=== PATIENT | male | born 1985 | race Caucasian/White ===

== ENCOUNTER 2025-03-23 00:28 | Day surgery (SDC) | payer OTHER, SELFPAY ==
[2025-03-19 15:41] VITALS: BMI 26.4
[2025-03-23 07:48] VITALS: BP 137/79; PULSE 63; RESP 16; TEMP 36.6; O2SAT 100; BMI 24.8
[2025-03-23] MEDS: LACTATED RINGERS 1,000 ML 150 ML IV CONT (07:56)
--- NOTE | 2025-03-23 08:01 | WPDANESEPPF ---
Anes - Initial Pre Proc Eval Procedure: Operation Date: 03/23/25 09:00 Proposed Procedures p Screening Colonoscopy - Steven Montgomery DO Date/Time: 03/23/25 08:01 Surgeon: Steven Montgomery DO Pre Op Diagnosis: Positive fit test Patient Data Age: 39 Gender: M Height: 1.75 m Weight: 76.4 kg Last Vital Signs Temp 36.6 C 03/23/25 07:48 Pulse 63 03/23/25 07:48 Resp 16 03/23/25 07:48 BP 137/79 03/23/25 07:48 Pulse Ox 100 03/23/25 07:48 O2 Del Method Room Air 03/23/25 07:48 Allergies Allergy/AdvReac Type Severity Reaction Status Date / Time No Known Allergies Allergy Verified 03/23/25 07:47 Home Medications ?Medication ?Instructions ?Recorded ?Confirmed ?Type albuterol sulfate 90 mcg/actuation 2 inh inhalation Q4H PRN shortness 09/21/24 03/19/25 History aerosol inhaler of breath or wheezing lisinopril 40 mg tablet 40 mg PO DAILY 09/21/24 03/19/25 History mometasone 220 mcg/actuation(120 1 inh inhalation Q12H 09/21/24 03/19/25 History doses)breath activated powder inhaler triamcinolone acetonide 0.1 % 1 applic topical BID PRN Dermatitis 09/21/24 03/19/25 History topical cream Patient hx anesthesia problems: none Family hx anesthesia problems: none Results Review: All pre-operative results and documents have been reviewed as part of the pre-operative evaluation. REPLACED BY [facility] Social History Social History Smoking status: Unknown if ever smoked Alcohol intake: unknown Substance use: unknown Substance use type: amphetamines Living arrangements: incarcerated Anes - Eval Final PreProcedure Day of Procedure 03/23/25 08:01 Patient weight: normal Heart: regular rate and rhythm Lungs: clear to auscultation Airway: Mallampati scale class II Neurological: alert and oriented Last oral intake: >/= 8 hours ASA classification: II Emergent: no Anesthetic plan: proceed Anesthesia type and monitoring: general GIVS and standard monitoring Results Review: All pre-operative results and documents have been reviewed as part of the pre-operative evaluation. Informed Consent: The patient's anesthetic plan and its attendant risks and benefits were discussed with the patient/family/POA. Questions were solicited and answers provided to the satisfaction of the patient/family/POA.
--- NOTE | 2025-03-23 08:43 | P.HP_ITS ---
H&P: HPI History of Present Illness Date/Time: 03/23/25 08:43 Chief Complaint: Family history of colon cancer, positive fit test Narrative: this is a 39-year-old man who presents for his 1st colonoscopy. He has a family history of colon cancer in 1 of his parents. He also has a grandparent that had a history of colon cancer. He had a fit test performed at the residential and this was positive. He denies any hematochezia or melena. Review of Systems Review of Systems: All systems reviewed & are unremarkable except as noted in HPI and below Constitutional: Constitutional: Denies chills, Denies fever(s), Denies headache(s) and Denies weight loss Eyes: Eyes: Denies change in vision ENT: Denies dizziness, Denies headache(s), Denies neck mass and Denies throat swelling Cardiovascular: Cardiovascular: Denies chest pain, Denies lightheadedness and Denies dyspnea Respiratory: Respiratory: Denies cough, Denies dyspnea and Denies wheezing Gastrointestinal: Gastrointestinal: Denies abdominal pain, Denies change in bowel habits, Denies nausea and Denies vomiting Genitourinary: Genitourinary: Denies hematuria and Denies dysuria Musculoskeletal: Musculoskeletal: Reports as per HPI Integumentary/Breasts: Skin/Breast: Reports as per HPI Neurologic: Denies dizziness and Denies headache(s) Allergic/Immunologic: Allergic/Immunologic: Denies throat swelling and Denies wheezing PMF Social History Social History Smoking status: Unknown if ever smoked Alcohol intake: unknown Substance use: unknown Substance use type: amphetamines Living arrangements: incarcerated Meds Home Medications and Allergies Home Medications ?Medication ?Instructions ?Recorded ?Confirmed ?Type albuterol sulfate 90 mcg/actuation 2 inh inhalation Q4H PRN shortness 09/21/24 03/19/25 History aerosol inhaler of breath or wheezing lisinopril 40 mg tablet 40 mg PO DAILY 09/21/24 03/19/25 History mometasone 220 mcg/actuation(120 1 inh inhalation Q12H 09/21/24 03/19/25 History doses)breath activated powder inhaler triamcinolone acetonide 0.1 % 1 applic topical BID PRN Dermatitis 09/21/24 03/19/25 History topical cream Allergies Allergy/AdvReac Type Severity Reaction Status Date / Time No Known Allergies Allergy Verified 03/23/25 07:47 Vital Signs Vital Signs - 24 hr 03/23/25 07:48 Temperature 98 F Pulse Rate 63 Respiratory Rate 16 Blood Pressure 137/79 Pulse Oximetry 100 Oxygen Delivery Room Air Exam Const: General: no acute distress and alert Orientation/consciousness: patient oriented x3 HENMT: Head: normocephalic and atraumatic Ears: hearing grossly normal bilaterally Face/Nose/Sinus: Normal nares present Mouth: Yes Normal oral and palatal mucosa present Eyes: Periorbital: periorbital findings normal Sclera: sclerae normal EOM: EOMs intact bilaterally Neck: Neck: normal visual inspection, no lymphadenopathy and trachea midline Chest: Chest palpation & inspection: normal inspection of the chest Resp: Effort & Inspection: normal respiratory effort Auscultation: clear to auscultation bilaterally Cardio: Jugular venous distension: no JVD Rate: regular rate Rhythm: regular rhythm Heart sounds: S1 normal heart sound present and S2 normal heart sound present Peripheral pulses: Peripheral pulses 2+ throughout GI: Inspection: normal to inspection GI Palp: Yes Soft to palpation, No Tenderness to palpation present (GI), No Guarding due to palpation present (GI) and No Rebound tenderness present Percussion: Yes normal to percussion Auscultation: normal bowel sounds : General: Yes no CVA tenderness Back/Spine/Pelvis: Back: no CVA tenderness Neuro: General: patient oriented x3, no focal motor deficits and CN's II-XI in tact bilaterally Cognition (Neuro): normal cognition Speech: normal speech Motor exam (neuro): 5/5 motor strength present throughout Extrem: General: capillary refill normal and no clubbing, cyanosis or edema Assessment and Plan Assessment and plan (1) Positive FIT (fecal immunochemical test): Code(s): R19.5 - Other fecal abnormalities Status: Acute Assessment and Plan: I have recommended colonoscopy. I have discussed the procedure, risks, benefits, and alternatives. Questions were answered. Patient is agreeable to proceed. (2) Family history of colon cancer: Code(s): Z80.0 - Family history of malignant neoplasm of digestive organs Status: Acute
--- NOTE | 2025-03-23 09:10 | S_PTH ---
PATIENT: Gumaro Alejandra LOC: [facility]#:[id number] AGE/SX: 39/M ROOM: RE03/23/[address]: Steven Montgomery DO : 1985 BED: DIS: 03/23/2025 SPEC #: [id number] RECD: 03/23/25 10:04 STATUS: HAILEY REBev #: [id number] ASIM: 03/23/25 09:[address]: Steven Montgomery DEPT: [facility] Surgical RECD BY: Chintan Yang ENTERED: 03/23/25 10:04 SP TYPE: Surgical OTHR DR: UNKNOWN,DOCTOR Tissues: A - Colon Polypectomy Procedures: Hematoxylin and Eosin Stain Gross and Microscopic Level 4
[2025-03-23 09:14] VITALS: BP 102/60; PULSE 68; RESP 17; O2SAT 98
[2025-03-23 09:24] VITALS: BP 108/65; PULSE 71; RESP 23; O2SAT 100
[2025-03-23 09:34] VITALS: BP 118/82; PULSE 64; RESP 18; O2SAT 100
== END 2025-03-23 09:44 | disposition home or self-care (01) ==
PROVIDERS: Visit Provider Surgery
PROC: 0DJD8ZZ Inspection of Lower Intestinal Tract, Via Natural or Artificial Opening Endoscopic (ICD-10-PCS; CPT 45378; principal; 2025-03-23 09:00)
DX: K63.5 Polyp of colon (principal); K64.8 Other hemorrhoids; Z79.51 Long term (current) use of inhaled steroids; Z80.0 Family history of malignant neoplasm of digestive organs
CPT/HCPCS: 45385; 88305; J2003; J2704; J7120